=== PATIENT | female | born 1950 | race Caucasian/White ===

== ENCOUNTER 2017-03-10 16:17 | Outpatient (CLI) | payer MEDICARE ==
--- NOTE | 2017-03-11 19:41 | Mammography Report ---
DATE OF SERVICE: 03/10/2017 DIGITAL BILATERAL SCREENING MAMMOGRAM: 03/10/2017 CLINICAL INDICATION: A 67-year-old for screening. COMPARISON: 01/2013, 07/2010, 06/2008, 04/2007. TECHNIQUE: Routine CC and MLO projections were obtained of the breasts. The breasts demonstrate scattered fibroglandular densities bilaterally. Punctate, typically benign calcifications are present. intramammary lymph nodes are stable. No suspicious masses, clustered microcalcifications, or regions of architectural distortion are identified. IMPRESSION: Benign findings. RECOMMENDATIONS: Routine annual screening unless otherwise clinically indicated. BIRADS category 2 benign findings. STANDARD QUALIFYING STATEMENTS 1. This examination was reviewed with the aid of Computed-Aided Detection (CAD). 2. A negative or benign imaging report should not delay biopsy if clinically suspicious findings are present. Consider surgical consultation if warranted. More than 5% of cancers are not identified by imaging. 3. Dense breasts may obscure an underlying neoplasm. TD: 03/11/2017 20:40
== END 2017-03-10 16:18 | disposition home or self-care (01) ==
LOC: DI 16:17
PROVIDERS: ATTEND Internal Medicine
DX: Z12.31 Encounter for screening mammogram for malignant neoplasm of breast (principal)
CPT/HCPCS: 77067

== ENCOUNTER 2017-08-05 08:00 | Outpatient (CLI) | payer MEDICARE ==
[2017-08-05 19:12] LABS: BASOPHILS # (AUTO) 0.1 10^3/uL (0.0-0.1); BASOPHILS % (AUTO) 1.2 %; EOSINOPHILS # (AUTO) 0.1 10^3/uL (0.0-0.7); EOSINOPHILS % (AUTO) 1.1 %; HGB - HEMOGLOBIN 14.8 g/dL (12.0-16.0); LYMPHOCYTES # (AUTO) 3.6 10^3/uL (1.5-3.5); LYMPHOCYTES % (AUTO) 38.3 %; MEAN CORPUSCULAR HEMOGLOBIN 30.7 pg (27.0-31.0); MEAN CORPUSCULAR HGB CONC 32.9 g/dL (32.0-36.0); MEAN CORPUSCULAR VOLUME 93.3 fL (81.0-99.0); MEAN PLATELET VOLUME 10.2 fL (7.9-10.8); MONOCYTES # (AUTO) 0.8 10^3/uL (0.0-1.0); MONOCYTES % (AUTO) 8.5 %; NEUTROPHILS # (AUTO) 4.8 10^3/uL (1.5-6.6); NEUTROPHILS % (AUTO) 50.9 %; PLT - PLATELET COUNT 215 10^3/uL (130-450); RED BLOOD COUNT 4.83 10^6/uL (4.20-5.40); WHITE BLOOD COUNT 9.4 x10^3/uL (4.8-10.8)
== END 2017-08-05 08:01 ==
LOC: LAB.N 08:00
PROVIDERS: ATTEND Obstetrics & Gynecology
DX: N95.0 Postmenopausal bleeding (principal)
CPT/HCPCS: 36415; 85025

== ENCOUNTER 2017-08-18 18:55 | Outpatient (CLI) | END 2017-08-18 18:56 | disposition home or self-care (01) ==

== ENCOUNTER 2017-09-30 09:53 | Outpatient (CLI) | payer MEDICARE ==
[2017-09-30 10:50] LABS: BASOPHILS # (AUTO) 0.1 10^3/uL (0.0-0.1); BASOPHILS % (AUTO) 1.3 %; EOSINOPHILS # (AUTO) 0.1 10^3/uL (0.0-0.7); LYMPHOCYTES # (AUTO) 3.3 10^3/uL (1.5-3.5); LYMPHOCYTES % (AUTO) 37.8 %; MEAN CORPUSCULAR HEMOGLOBIN 30.4 pg (27.0-31.0); MEAN CORPUSCULAR HGB CONC 33.6 g/dL (32.0-36.0); MEAN CORPUSCULAR VOLUME 90.4 fL (81.0-99.0); MEAN PLATELET VOLUME 10.1 fL (7.9-10.8); MONOCYTES # (AUTO) 0.6 10^3/uL (0.0-1.0); MONOCYTES % (AUTO) 7.2 %; NEUTROPHILS # (AUTO) 4.6 10^3/uL (1.5-6.6); NEUTROPHILS % (AUTO) 52.7 %; PLT - PLATELET COUNT 187 10^3/uL (130-450); RED BLOOD COUNT 4.62 10^6/uL (4.20-5.40); RED CELL DISTRIBUTION WIDTH 12.6 % (12.0-15.0); WHITE BLOOD COUNT 8.8 x10^3/uL (4.8-10.8)
[2017-09-30 10:52] LABS: CALCIUM 9.2 mg/dL (8.5-10.3); CREATININE 0.5 mg/dL (0.4-1.0)
== END 2017-09-30 09:54 | disposition home or self-care (01) ==
LOC: LAB 09:53
PROVIDERS: ATTEND Obstetrics & Gynecology
DX: Z01.812 Encounter for preprocedural laboratory examination (principal); N84.0 Polyp of corpus uteri
CPT/HCPCS: 36415; 80048; 85025

== ENCOUNTER 2017-10-01 06:09 | Day surgery (SDC) | payer MEDICARE ==
--- NOTE | 2017-09-30 12:11 | PREOP HISTORY & PHYSICAL ---
DATE OF SERVICE: 10/01/2017 Physician: Pankaj Sunshine MD PREOP HISTORY AND PHYSICAL ON 09/30/2017 FOR ANTICIPATED PROCEDURE DATE OF 10/01 IDENTIFICATION: The patient is a 67-year-old G2, P1 female who reached menopause at roughly 48 years of age. She presents with postmenopausal bleeding. HISTORY OF PRESENT ILLNESS: Patient presented with postmenopausal bleeding. She has undergone an endometrial biopsy in the office, which is suspicious for that of an endometrial polyp. It was noted to be benign without evidence of any malignancy. She denies any history of any diabetes. She does have some hypertension. PAST MEDICAL HISTORY: Positive for hypertension, as well as restless leg syndrome. SURGICAL HISTORY: Right hip replacement, as well as tonsillectomy and adenoidectomy. ALLERGIES: NONE KNOWN. CURRENT MEDICATIONS 1. Estradiol. 2. Metoclopramide. 3. Lisinopril. HABITS: Patient drinks alcohol occasionally. Denies use of tobacco or THC on a daily basis. 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 FAMILY HISTORY: Positive for a mother who had heart disease, which includes congestive heart failure, CVA, HTN. She also had a hysterectomy at 75 years of age. PHYSICAL EXAMINATION GENERAL: Well-developed, well-nourished, white female in no acute distress at this time. VITAL SIGNS: Her blood pressure today was noted to be 110/80. HEENT: Pupils equal, round. Extraocular muscles intact. NECK: Thyroid not palpably enlarged. HEART: Regular rate and rhythm without murmurs. LUNGS: Lung reynolds are clear without rales or wheezes. PELVIC: On previous examination showed the uterus, which was not enlarged. Her endometrial biopsy specimen has been previously noted. IMPRESSION 1. A 67-year-old G2, P1 female who is menopausal. 2. Postmenopausal bleeding. 3. Biopsy suggestive of endometrial polyp. PLAN: We will perform hysteroscopy with dilatation and curettage and removal of polyp. Risks and benefits have been explained to the patient including those but not limited to bleeding, infection, injury to pelvic organs; which include the uterus, tubes, ovaries, bowel, bladder, and ureter. She is aware of potential DVT with PE, as well as postop adhesions, which can cause pain. TD: 09/30/2017 09:39 [facility]
[2017-10-01] MEDS ORDERED: ceFAZolin 1 GM VIAL ONE (06:30)
[2017-10-01] MEDS ORDERED: LACTATED RINGERS 1,000 ML IV ONE (06:36)
--- NOTE | 2017-10-01 06:52 | ANESTHESIA ---
Pre-Anesthesia VS, & Labs - Diagnosis Endometrial Polyp - Procedure Myosure hysteroscopy, D&C Vital Signs: 153/68 50 97% 16 Height 5 ft 7 in - NPO >8 hours - Is Patient ?: No, Not Applicable - Lab Results Lab results reviewed: Yes Home Medications and Allergies Home Medications: Ambulatory Orders Medication Instructions Recorded Confirmed Estradiol/Norethindrone Acet 0.5 tab PO DAILY 04/18/15 09/30/17 [Estradiol-Noreth 0.5-0.1 mg Tb] Lisinopril 20 mg PO QPM 04/18/15 09/30/17 Metoprolol Tartrate 25 mg PO BID 09/30/17 10/01/17 Allergies/Adverse Reactions: Allergies Allergy/AdvReac Type Severity Reaction Status Date / Time No Known Drug Allergies Allergy Verified 03/08/13 11:42 Anes History & Medical History - Anesthetic History Anesthesia Complications: reports: No previous complications - Airway/Dental Dental: WNL Mouth Opening: Greater than 4 Fingerbreadths Mallampati classification: II Thyromental Distance: greater than 6 cm - Medical History Cardiovascular: reports: Hypertension Pulmonary: reports: None Gastrointestinal: reports: None Urinary: reports: None Musculoskeletal: reports: Osteoarthritis Endocrine/Autoimmune: reports: None Skin: reports: None Smoking Status: Current every day smoker (THC, no longer tobbacco) Psychosocial: reports: Cannabis (daily) - Surgical History Eyes Ears Nose Throat (EENT): Cataracts, Tonsil/Adenoidectomy Gynecologic: Dilation and currettage Orthopedic: Hip replacement Exam General: Alert, Oriented x3 Respiratory: Lungs clear Cardiovascular: Regular rate Mental/Cognitive Status: Alert/Oriented X3, Normal for patient Cognitive Status: Within normal limits Plan Anesthesia Type: General Consent for Procedure(s) Verified and Reviewed: Yes Code Status: Attempt Resuscitation ASA classification: 1-Healthy patient Is this case an emergency?: No
[2017-10-01] MEDS ORDERED: ONDANSETRON 4 MG/2 ML VIAL IVP ONE (08:00)
[2017-10-01] MEDS ORDERED: PROPOFOL 200 MG/20 ML VIAL IVP ONE (08:00)
[2017-10-01] MEDS ORDERED: DEXAMETHASONE 4 MG/ML VIAL IVP ONE (08:00)
[2017-10-01] MEDS ORDERED: GLYCOPYRROLATE 1 MG/5 ML VIAL IVP ONE (08:00)
[2017-10-01] MEDS ORDERED: fentaNYL 100 MCG/2 ML VIAL IVP ONE (08:00)
[2017-10-01] MEDS ORDERED: MIDAZOLAM 2 MG/2 ML VIAL IVP ONE (08:00)
[2017-10-01] MEDS ORDERED: LIDOCAINE-MPF 2% 5 ML VIAL IM ONE (08:00)
[2017-10-01 09:27] VITALS: BP 145/67
--- NOTE | 2017-10-01 10:07 | OPERATIVE REPORT ---
DATE OF SERVICE: 10/01/2017 Physician: Pankaj Sunshine MD PREOPERATIVE DIAGNOSES 1. Postmenopausal bleeding. 2. Endometrial polyp. POSTOPERATIVE DIAGNOSES 1. Postmenopausal bleeding. 2. Endometrial polyp. PROCEDURE PERFORMED: Hysteroscopy with resection of endometrial polyp. SURGEON: Pankaj Sunshine MD. ANESTHESIA: Lindsay Rajan CRNA. ANESTHETIC: General via LMA. FINDINGS: Uterus sounded to 6 cm. There was a large endometrial polyp filling the endometrial cavit y. COMPLICATIONS: None. ESTIMATED BLOOD LOSS: Less than 5 mL. FLUIDS: In was 1369. Fluid out was 1200 mL Estimated fluid deficit 169 of normal saline. IV flui ds 500 mL. PROCEDURE: Following adequate general anesthesia, the patient was placed in dorsal lithotomy positio n. She was prepped and draped in the usual fashion. At this point, timeout was performed, and the i ssues and concerns were addressed. The cervix was visualized, grasped with a single-tooth tenaculum, sounded to 6 cm and then progressively dilated to 6 mm. A MyoSure hysteroscope was introduced, and there was a large endometrial polyp filling the endometrial cavity. The left cornual area was easily visualized. The right was not visible. At this point, the MyoSure was engaged and the endometrial polyp was easily resected all the way down to the endometrial base. The entire cavity was noted to be empty. Blood loss was minimal during th is entire procedure. The entire endometrial cavity was visualized and photographed. At this point, the MyoSure was removed. The patient tolerated the procedure well, and was taken to [facility] in stable condition. Sponge and needle counts were correct. TD: 10/01/2017 09:52
== END 2017-10-01 06:10 | disposition home or self-care (01) ==
LOC: SDS 06:09
PROVIDERS: ATTEND Obstetrics & Gynecology
PROC: 0UB98ZZ Excision of Uterus, Via Natural or Artificial Opening Endoscopic (ICD-10-PCS; principal; 2017-10-01 07:30)
DX: N84.0 Polyp of corpus uteri (principal); N95.0 Postmenopausal bleeding; I10 Essential (primary) hypertension; G25.81 Restless legs syndrome
CPT/HCPCS: 58558; J7120; 80048; 88305

== ENCOUNTER 2018-07-09 16:47 | Outpatient (CLI) | payer MEDICARE ==
--- NOTE | 2018-07-10 14:10 | Mammography Report ---
Reason: SCREENING MAMMO Procedure Date: 07/09/2018 Accession Number: [id number] / [id number] Procedure: ROBYN - Screening Mammo w/Hansel CPT Code: FULL RESULT: EXAM: Screening Mammo w/Hansel DATE: 07/09/2018 5:13 PM CLINICAL HISTORY: Routine screening. No reported personal or family history of breast cancer. TECHNIQUE: (B) - Bilateral CC and MLO views were obtained. COMPARISON: 03/10/2017 through 07/20/2008 PARENCHYMAL PATTERN: (F) - The breasts demonstrate diffuse fatty replacement bilaterally. FINDINGS: Bilateral breasts: There are no suspicious masses, calcifications, or areas of distortion. IMPRESSION: Negative examination. BI-RADS category 1. RECOMMENDATION: (ANNUAL) - Recommend routine annual screening mammography. BI-RADS CATEGORY: (1) - Negative. STANDARD QUALIFYING STATEMENTS: 1. This examination was not reviewed with the aid of Computer-Aided Detection (CAD). 2. A negative or benign imaging report should not preclude biopsy if clinically suspicious findings are present. 3. Dense breasts may obscure an underlying neoplasm. 4. This examination was reviewed with the aid of 3D breast imaging (tomosynthesis).
== END 2018-07-09 16:48 | disposition home or self-care (01) ==
LOC: DI 16:47
PROVIDERS: ATTEND Internal Medicine
DX: Z12.31 Encounter for screening mammogram for malignant neoplasm of breast (principal)
CPT/HCPCS: 77063; 77067

== ENCOUNTER 2018-09-28 13:50 | Outpatient (CLI) | payer MEDICARE ==
--- NOTE | 2018-09-29 14:30 | XRAY Report ---
Reason: PAIN EDEMA RT FOOT X6MO Procedure Date: 09/28/2018 Accession Number: [id number] / [id number] Procedure: XR - Foot 3 View RT CPT Code: FULL RESULT: EXAM: RIGHT FOOT RADIOGRAPHY EXAM DATE: 09/28/2018 02:04 PM. CLINICAL HISTORY: Pain. Edema right foot x 6 months. COMPARISON: None. TECHNIQUE: 3 views. FINDINGS: Bones: Mild inferior calcaneal spurring. No fractures or bone lesions. Joints: Degenerative changes are seen at the first metatarsophalangeal articulation. Soft Tissues: Normal. No soft tissue swelling. IMPRESSION: Degenerative changes as above. RADIA
== END 2018-09-28 13:51 | disposition home or self-care (01) ==
LOC: DI 13:50
PROVIDERS: ATTEND Podiatrist
DX: M19.071 Primary osteoarthritis, right ankle and foot (principal); M77.31 Calcaneal spur, right foot

== ENCOUNTER 2019-11-18 14:49 | Outpatient (CLI) | payer MEDICARE ==
--- NOTE | 2019-11-22 13:39 | Mammography Report ---
BILATERAL DIGITAL SCREENING MAMMOGRAM 3D/2D: 11/18/2019 CLINICAL: Routine screening. Comparison is made to exams dated: 07/09/2018 mammogram, 03/10/2017 mammogram, and 02/03/2013 mammogra m - [facility]. The tissue of both breasts is predominantly fatty. No significant masses, calcifications, or other findings are seen in either breast. There has been no significant interval change. IMPRESSION: NEGATIVE There is no mammographic evidence of malignancy. A 1 year screening mammogram is recommended. This exam was interpreted at Station ID: [id number]. NOTE: For mammograms, a report in lay terms will be sent to the patient. Approximately 15% of breast malignancies will not be visualized mammographically. In the management of a palpable breast mass, a negative mammogram must not discourage biopsy of a clinically suspicious lesion. Electronically Signed By: Jack Varela M.D. slc/penrad:11/19/2019 09:55:02 ACR BI-RADS Category 1: Negative 3341F PARENCHYMAL PATTERN: (F) - The breast(s) demonstrate(s) diffuse fatty replacement. BI-RADS CATEGORY: (1) - 1 RECOMMENDATION: (ANNUAL) - Recommend routine annual screening mammography. [id number] 1 year screening LATERALITY: (B)
== END 2019-11-18 14:50 | disposition home or self-care (01) ==
LOC: DI 14:49
PROVIDERS: ATTEND Internal Medicine
DX: Z12.31 Encounter for screening mammogram for malignant neoplasm of breast (principal)
CPT/HCPCS: 77063; 77067

== ENCOUNTER 2020-12-20 07:07 | Day surgery (SDC) | payer MEDICARE ==
[2020-12-20] MEDS ORDERED: LACTATED RINGERS 1,000 ML IV ONE ×2 (07:26→08:48)
--- NOTE | 2020-12-20 08:09 | ANESTHESIA ---
Pre-Anesthesia VS, & Labs - Diagnosis screening colonoscopy - Procedure colonoscopy Vital Signs: Temp Pulse Resp BP Pulse Ox 36.7 C 69 16 146/65 H 96 12/20/20 07:27 12/20/20 07:27 12/20/20 07:27 12/20/20 07:27 12/20/20 07:27 Height: 5 ft 7 in Weight (kg): 86.7 kg Body Mass Index: 29.9 BMI Classification: Overweight - NPO >8 hours - Is Patient ?: No Home Medications and Allergies Home Medications: Ambulatory Orders Carbidopa/Levodopa 25/100 [Sinemet 25 mg/100 mg] 1 each PO DAILY 12/20/20 Melatonin 10 mg PO DAILY PM 12/20/20 Estradiol/Norethindrone Acet [Estradiol-Noreth 0.5-0.1 mg Tb] 1 tab PO DAILY 04/18/15 lisinopriL [Lisinopril] 40 mg PO QPM 04/18/15 Metoprolol Tartrate 25 mg PO BID 09/30/17 Carbidopa/Levodopa 25/100 [Sinemet 25 mg/100 mg] 1 each PO DAILY 12/20/20 Melatonin 10 mg PO DAILY PM 12/20/20 Allergies/Adverse Reactions: Allergies Allergy/AdvReac Type Severity Reaction Status Date / Time No Known Drug Allergies Allergy Verified 12/20/20 07:43 Anes History & Medical History - Anesthetic History Anesthesia Complications: reports: No previous complications - Medical History Cardiovascular: reports: Hypertension Pulmonary: reports: None Gastrointestinal: reports: None Urinary: reports: None Musculoskeletal: Endocrine/Autoimmune: reports: None Skin: reports: None Smoking Status: Current every day smoker (THC, no longer tobbacco) History of Cancer?: No - Surgical History General: reports: Colonoscopy Eyes Ears Nose Throat (EENT): reports: Tonsil/Adenoidectomy Gynecologic: reports: Dilation and currettage Orthopedic: reports: Hip replacement Exam General: Alert Dental: WNL, Poor dentition Mouth Opening: Greater than 4 Fingerbreadths Neck Mobility: Normal Mallampati classification: II Thyromental Distance: greater than 6 cm Respiratory: Lungs clear Cardiovascular: Regular rate Plan Anesthesia Type: Total IV Consent for Procedure(s) Verified and Reviewed: Yes Code Status: Attempt Resuscitation ASA classification: 2-Mild systemic disease Is this case an emergency?: No
[2020-12-20] MEDS ORDERED: LIDOCAINE 1% ABBOJECT 50 MG/5 ML SYRINGE ONE (08:22)
[2020-12-20 09:04] VITALS: BP 136/57
--- NOTE | 2020-12-20 12:29 | ANESTHESIA POST OP EVALUATION ---
Anesthesia Post Eval - Post Anesthesia Eval Vitals: Last Vital Signs Temp 36.4 C L 12/20/20 08:47 Pulse 62 12/20/20 09:04 Resp 16 12/20/20 09:04 BP 136/57 H 12/20/20 09:04 Pulse Ox 100 12/20/20 09:04 CV Function Including HR & BP: Stable Pain Control: Satisfactory Nausea & Vomiting: Negative Mental Status: Baseline Respiratory Status: Airway Patent Hydration Status: Satisfactory Anesthesia Complications: None
== END 2020-12-20 07:08 | disposition home or self-care (01) ==
LOC: SDS 07:07
PROVIDERS: ATTEND Surgery
PROC: 0DBL8ZZ Excision of Transverse Colon, Via Natural or Artificial Opening Endoscopic (ICD-10-PCS; principal; 2020-12-20 08:15)
DX: Z12.11 Encounter for screening for malignant neoplasm of colon (principal); D12.3 Benign neoplasm of transverse colon; K64.8 Other hemorrhoids; K57.30 Diverticulosis of large intestine without perforation or abscess without bleeding; Z87.891 Personal history of nicotine dependence
CPT/HCPCS: 45385; J7120

== ENCOUNTER 2021-07-03 08:00 | Outpatient (CLI) | payer MEDICARE ==
[2021-07-03 16:28] LABS: BILIRUBIN,URINE NEGATIVE (NEGATIVE); GLUCOSE, URINE (UA) NEGATIVE (NEGATIVE); KETONES,URINE (UA) NEGATIVE (NEGATIVE); LEUKOCYTE ESTERASE, URINE TRACE (NEGATIVE); NITRITE,URINE POSITIVE (NEGATIVE); OCCULT BLOOD,URINE TRACE-INTA (NEGATIVE); PROTEIN,URINE NEGATIVE (NEGATIVE); UROBILINOGEN,URINE 0.2 (NORMAL) E.U./dL (NORMAL)
[2021-07-03 16:31] LABS: CLARITY,URINE HAZY (CLEAR)
== END 2021-07-03 23:59 | disposition home or self-care (01) ==
LOC: LAB.R 08:00
PROVIDERS: ATTEND Internal Medicine
DX: R39.9 Unspecified symptoms and signs involving the genitourinary system (principal)
CPT/HCPCS: 81003; 87086; 87181

== ENCOUNTER 2021-11-13 08:00 | Outpatient (CLI) | payer MEDICARE ==
--- NOTE | 2021-11-13 16:33 | XRAY Report ---
PROCEDURE: Hip 2 View LT INDICATIONS: LEFT HIP PAIN TECHNIQUE: AP view the pelvis and lateral view of the left hip. COMPARISON: Left hip radiographs 04/27/2018 FINDINGS: Bones: Mild patient motion is noted on AP view of the pelvis. Postsurgical changes are seen from rig ht total hip arthroplasty. Hardware components are in stable positions. Moderate to severe degenerati ve changes are seen at the left hip with joint space narrowing and marginal osteophyte formation. Deg enerative changes are seen in the included lumbar spine. No acute fractures or dislocations. No susp icious bony lesions. The visualized pelvic ring appears intact. Soft tissues: No suspicious soft tissue calcifications or masses. IMPRESSION: 1.Moderate to severe left hip osteoarthrosis has not significantly changed when compared to the radio graphs from 04/27/2018. 2.Stable right hip arthroplasty. Reviewed by: Nasir Nguyen MD on 11/13/2021 4:31 PM PDT Approved by: Nasir Nguyen MD on 11/13/2021 4:31 PM PDT Station ID: [id number]
== END 2021-11-13 23:59 | disposition home or self-care (01) ==
LOC: DI.WOS 08:00
PROVIDERS: ATTEND Orthopaedic Surgery
DX: M16.12 Unilateral primary osteoarthritis, left hip (principal); Z96.641 Presence of right artificial hip joint

== ENCOUNTER 2021-12-19 10:34 | Outpatient (CLI) | payer MEDICARE ==
[2021-12-19 10:49] LABS: BASOPHILS # (AUTO) 0.1 10^3/uL (0.0-0.1); BASOPHILS % (AUTO) 1.2 %; EOSINOPHILS # (AUTO) 0.2 10^3/uL (0.0-0.7); EOSINOPHILS % (AUTO) 1.8 %; HCT - HEMATOCRIT 43.5 % (37.0-47.0); HGB - HEMOGLOBIN 14.3 g/dL (12.0-16.0); LYMPHOCYTES # (AUTO) 3.4 10^3/uL (1.5-3.5); LYMPHOCYTES % (AUTO) 41.7 %; MEAN CORPUSCULAR HEMOGLOBIN 29.9 pg (27.0-31.0); MEAN CORPUSCULAR HGB CONC 32.9 g/dL (32.0-36.0); MEAN CORPUSCULAR VOLUME 90.8 fL (81.0-99.0); MEAN PLATELET VOLUME 11.1 fL (7.9-10.8); MONOCYTES # (AUTO) 0.6 10^3/uL (0.0-1.0); MONOCYTES % (AUTO) 6.8 %; NEUTROPHILS # (AUTO) 3.9 10^3/uL (1.5-6.6); NEUTROPHILS % (AUTO) 48.4 %; PLT - PLATELET COUNT 189 10^3/uL (130-450); RED BLOOD COUNT 4.79 10^6/uL (4.20-5.40); RED CELL DISTRIBUTION WIDTH 12.7 % (12.0-15.0); WHITE BLOOD COUNT 8.1 x10^3/uL (4.8-10.8)
[2021-12-19 11:07] LABS: ALBUMIN 4.4 g/dL (3.2-5.5); ALBUMIN/GLOBULIN RATIO 1.4 (1.0-2.2); ALKALINE PHOSPHATASE 66 IU/L (42-121); ALT ALANINE AMINOTRANSFERASE 11 IU/L (10-60); AST ASPARTATE AMINOTRANSFERASE 17 IU/L (10-42); BILIRUBIN,TOTAL 0.6 mg/dL (0.2-1.0); BUN - BLOOD UREA NITROGEN 16 mg/dL (6-20); CALCIUM 10.1 mg/dL (8.5-10.3); CARBON DIOXIDE - CO2 29 mmol/L (21-32); CHLORIDE 102 mmol/L (101-111); CHOL/HDL RATIO 4.5 (<4.4); CHOLESTEROL 176 mg/dL; CREATININE 0.7 mg/dL (0.4-1.0); GFR - MDRD 82 (>89); GLUCOSE 99 mg/dL (70-100); HDL CHOLESTEROL 39 mg/dL; LDL CHOLESTEROL,CALCULATED 96 mg/dL; LDL/HDL RATIO 2.5 (<4.4); POTASSIUM 4.4 mmol/L (3.5-5.0); SODIUM 141 mmol/L (135-145); TOTAL PROTEIN 7.6 g/dL (6.7-8.2); TRIGLYCERIDES 203 mg/dL; VLDL CHOLESTEROL 41 mg/dL
== END 2021-12-19 10:35 | disposition home or self-care (01) ==
LOC: LAB 10:34
PROVIDERS: ATTEND Internal Medicine
DX: Z00.00 Encounter for general adult medical examination without abnormal findings (principal); I10 Essential (primary) hypertension; R39.14 Feeling of incomplete bladder emptying; M25.551 Pain in right hip; N95.1 Menopausal and female climacteric states; D25.9 Leiomyoma of uterus, unspecified; Z86.010 Personal history of colon polyps
CPT/HCPCS: 36415; 80053; 80061; 83721; 84443; 85025

== ENCOUNTER 2021-12-27 13:38 | Outpatient (CLI) | payer MEDICARE ==
--- NOTE | 2021-12-27 15:34 | XRAY Report ---
PROCEDURE: Hip w/Pelvis 2-3V RT INDICATIONS: RIGHT HIP PAIN TECHNIQUE: AP pelvis with lateral view(s) of the right hip(s). COMPARISON: None. FINDINGS: Bones: No fractures or dislocations. Pelvic ring appears intact. No suspicious bony lesions. Righ t hip arthroplasty is present. Hardware is intact without evidence of hardware fracture or periprosth etic lucency to suggest loosening. [id number] left hip arthritic changes are present. Soft tissues: The visualized bowel gas pattern is normal. No suspicious soft tissue calcifications. IMPRESSION: Stable right hip arthroplasty. Left hip arthritic changes. Reviewed by: Mandie Cabello MD on 12/27/2021 3:33 PM PDT Approved by: Mandie Cabello MD on 12/27/2021 3:33 PM PDT Station ID: [id number]
== END 2021-12-27 13:39 | disposition home or self-care (01) ==
LOC: DI 13:38
PROVIDERS: ATTEND Internal Medicine
DX: M25.551 Pain in right hip (principal); Z96.641 Presence of right artificial hip joint

== ENCOUNTER 2022-06-28 12:11 | Outpatient (CLI) | payer MEDICARE ==
--- NOTE | 2022-07-01 09:16 | Mammography Report ---
BILATERAL DIGITAL SCREENING MAMMOGRAM 3D/2D: 06/28/2022 CLINICAL: Routine screening. Comparison is made to exams dated: 11/18/2019 mammogram, 07/09/2018 mammogram, 03/10/2017 mammogram, an d 02/03/2013 mammogram - [facility]. Both breasts are almost entirely fatty (category a/<25% glandular tissue). No significant masses, calcifications, or other findings are seen in either breast. There has been no significant interval change. IMPRESSION: NEGATIVE There is no mammographic evidence of malignancy. A 1 year screening mammogram is recommended. Based on the Tyrer Cuzick model (a risk assessment model) the patients lifetime risk is 1.8% and her 10 year risk is 1.6%. According to the ACR, ACS, and NCCN guidelines, an annual breast MRI exam daniel g with mammogram is recommended if the patients lifetime risk is 20% or greater. This exam was interpreted at Station ID: [id number]. NOTE: For mammograms, a report in lay terms will be sent to the patient. Approximately 15% of breast malignancies will not be visualized mammographically. In the management of a palpable breast mass, a negative mammogram must not discourage biopsy of a clinically suspicious lesion. Electronically Signed By: Trey blancas/isiah:06/28/2022 13:37:08 letter sent: No_Letter ACR BI-RADS Category 1: Negative 3341F PARENCHYMAL PATTERN: (F) - The breast(s) demonstrate(s) diffuse fatty replacement. BI-RADS CATEGORY: (1) - 1 Mammogram [id number] 1 year screening LATERALITY: (B)
== END 2022-06-28 12:12 | disposition home or self-care (01) ==
LOC: DI 12:11
PROVIDERS: ATTEND Internal Medicine
DX: Z12.31 Encounter for screening mammogram for malignant neoplasm of breast (principal)

== ENCOUNTER 2022-07-09 07:00 | Outpatient (CLI) | payer MEDICARE ==
--- NOTE | 2022-07-09 16:41 | XRAY Report ---
PROCEDURE: Chest 2 View X-Ray INDICATIONS: VIRAL BRONCHITIS TECHNIQUE: 2 views of the chest were acquired. COMPARISON: None. FINDINGS: Surgical changes and devices: None. Lungs and pleura: No pleural effusions or pneumothorax. Lungs are clear. Mediastinum: Mediastinal contours appear normal. Heart size is normal. Bones and chest wall: No suspicious bony lesions. Overlying soft tissues appear unremarkable. IMPRESSION: No acute cardiopulmonary disease process. Reviewed by: Luz Maria Christian MD, PhD on 07/09/2022 4:40 PM PDT Approved by: Luz Maria Christian MD, PhD on 07/09/2022 4:40 PM PDT Station ID: [id number]
== END 2022-07-09 23:59 | disposition home or self-care (01) ==
LOC: DI.S 07:00
PROVIDERS: ATTEND Emergency Medicine
DX: J20.8 Acute bronchitis due to other specified organisms (principal)

== ENCOUNTER 2023-04-23 08:11 | Outpatient (CLI) | payer MEDICARE ==
[2023-04-23 08:29] LABS: BASOPHILS # (AUTO) 0.1 10^3/uL (0.0-0.1); BASOPHILS % (AUTO) 0.7 %; EOSINOPHILS # (AUTO) 0.1 10^3/uL (0.0-0.7); EOSINOPHILS % (AUTO) 1.5 %; HCT - HEMATOCRIT 43.2 % (37.0-47.0); LYMPHOCYTES # (AUTO) 2.8 10^3/uL (1.5-3.5); LYMPHOCYTES % (AUTO) 40.8 %; MEAN CORPUSCULAR HEMOGLOBIN 29.8 pg (27.0-31.0); MEAN CORPUSCULAR HGB CONC 32.4 g/dL (32.0-36.0); MEAN CORPUSCULAR VOLUME 91.9 fL (81.0-99.0); MEAN PLATELET VOLUME 11.7 fL (7.9-10.8); MONOCYTES # (AUTO) 0.5 10^3/uL (0.0-1.0); MONOCYTES % (AUTO) 6.9 %; NEUTROPHILS # (AUTO) 3.4 10^3/uL (1.5-6.6); PLT - PLATELET COUNT 175 10^3/uL (130-450); RED CELL DISTRIBUTION WIDTH 12.6 % (12.0-15.0); WHITE BLOOD COUNT 6.9 x10^3/uL (4.8-10.8)
[2023-04-23 08:57] LABS: ALBUMIN 4.5 g/dL (3.2-5.5); ALBUMIN/GLOBULIN RATIO 1.6 (1.0-2.2); ALKALINE PHOSPHATASE 65 IU/L (42-121); ALT ALANINE AMINOTRANSFERASE 7 IU/L (10-60); AST ASPARTATE AMINOTRANSFERASE 17 IU/L (10-42); BILIRUBIN,TOTAL 0.4 mg/dL (0.2-1.0); BUN - BLOOD UREA NITROGEN 19 mg/dL (6-20); CALCIUM 10.2 mg/dL (8.5-10.3); CARBON DIOXIDE - CO2 31 mmol/L (21-32); CHLORIDE 104 mmol/L (101-111); CHOL/HDL RATIO 4.2 (<4.4); CHOLESTEROL 165 mg/dL; CREATININE 0.7 mg/dL (0.6-1.3); GFR - MDRD 82 (>89); GLUCOSE 95 mg/dL (74-104); HDL CHOLESTEROL 39 mg/dL; LDL CHOLESTEROL,CALCULATED 82 mg/dL; LDL/HDL RATIO 2.1 (<4.4); POTASSIUM 4.4 mmol/L (3.5-4.5); SODIUM 139 mmol/L (135-145); TOTAL PROTEIN 7.3 g/dL (6.4-8.9); TRIGLYCERIDES 220 mg/dL (48-352); VLDL CHOLESTEROL 44 mg/dL
[2023-04-23 09:12] LABS: THYROID STIMULATING HORMONE 1.49 uIU/mL (0.34-5.60)
[2023-04-23 10:30] LABS: ESTIMATED AVERAGE GLUCOSE 117 mg/dL (70-100); HEMOGLOBIN A1c% 5.7 % (4.27-6.07)
== END 2023-04-23 08:12 | disposition home or self-care (01) ==
LOC: LAB 08:11
PROVIDERS: ATTEND Internal Medicine
DX: I10 Essential (primary) hypertension (principal); Z79.899 Other long term (current) drug therapy; Z13.6 Encounter for screening for cardiovascular disorders; R63.8 Other symptoms and signs concerning food and fluid intake; R61 Generalized hyperhidrosis
CPT/HCPCS: 36415; 80053; 80061; 82607; 83036; 83721; 84443; 85025

== ENCOUNTER 2023-06-23 09:00 | Emergency (ER) | payer MEDICARE ==
[2023-06-23 09:22] VITALS: BP 168/46
--- NOTE | 2023-06-23 09:47 | ED Physician Documentation ---
PD HPI LOWER EXT INJURY - Stated complaint Stated Complaint: LT LEG PX - Chief complaint Chief Complaint: Trauma Ext - Additional information Additional information: Generally healthy 73-year-old lady slipped on , 4 days ago, walking to convenience store landed on her left knee. Complaining of pain in the left patella. She is ambulatory with moderate discomfort with a cane. No other injuries at the time. PD PAST MEDICAL HISTORY - Past Medical History Cardiovascular: Hypertension Respiratory: None Neuro: Peripheral neuropathy Endocrine/Autoimmune: None GI: None RADIO TALK SHOW HOST: None : None HEENT: Chronic hearing loss Psych: None Musculoskeletal: None Derm: None - Past Surgical History Past Surgical History: Yes General: Colonoscopy Ortho: Hip replacement /RADIO TALK SHOW HOST: Dilation and currettage HEENT: Cataracts, Tonsil/Adenoidectomy - Present Medications Home Medications: Ambulatory Orders Medication Instructions Recorded Confirmed lisinopriL [Lisinopril] 40 mg PO QPM 04/18/15 06/23/23 Metoprolol Tartrate 25 mg PO BID 09/30/17 06/23/23 HYDROcod/ACETAM 5/325 [[place] 5/325] 1 - 2 tab PO Q6H PRN #15 tablet 06/23/23 Multivitamin/Iron/Folic Acid 1 each PO DAILY 06/23/23 06/23/23 [Centrum Women Tablet] traZODone [Desyrel] 50 mg PO HS PRN 06/23/23 06/23/23 - Allergies Allergies/Adverse Reactions: Allergies Allergy/AdvReac Type Severity Reaction Status Date / Time No Known Drug Allergies Allergy Verified 06/23/23 09:09 - Social History Does the pt smoke?: No Smoking Status: Never smoker Does the pt drink ETOH?: Yes Does the pt have substance abuse?: Yes Substance Use and Type: Marijuana - Immunizations Immunizations are current?: Yes PD ED PE NORMAL - General General: Alert and oriented X 3 - HEENT HEENT: Atraumatic - Extremities Extremities: Other (Tender to palpation on left patella. There is mild swelling of the left knee. The joint is not grossly unstable. Her ankle and hip are fine on the same side. Skin is intact) Results - Vitals Vitals: Vital Signs - 24 hr 06/23/23 09:11 Temperature 36.7 C Heart Rate 51 L Respiratory 16 Rate Blood Pressure 168/46 H O2 Saturation 100 Oxygen O2 Source [With Activity] Room air O2 Source Room air - Rads (name of study) left knee Relevant Findings:: Final report received (Nondisplaced comminuted patellar fracture.), EMP independent interpretation of test (patella fx) PD Medical Decision Making - ED course Complexity details: reviewed results, re-evaluated patient, considered differential (Internal derangement knee, patella fracture. No sign she is patella tendon injury), d/w patient ED course: x-ray confirms clinical suspicion of patella fracture. Will treat with knee immobilizer and refer to orthopedics she was given knee immobilizer and crutches here patient will prescription for [place]. She has a relationship with an orthopedist from her hip replacements. She will call to be seen this week. Departure - Departure Disposition: 01 Home, Self Care Clinical Impression: Patella fracture Condition: Good Instructions: ED Fx Patella Prescriptions: HYDROcod/ACETAM 5/325 [[place] 5/325] 1 - 2 tab PO Q6H PRN #15 tablet PRN Reason: Pain Comments: Use the knee immobilizer and crutches that we gave you. Elevate the extremity. Ice to the area. Can take [place] as needed for pain. Call your orthopedic surgeon that you have a relationship with from your hip to be seen within the week. Return to ER any concerns Forms: PCP List
--- NOTE | 2023-06-23 10:00 | XRAY Report ---
PROCEDURE: Knee 4+V LT INDICATIONS: Trauma TECHNIQUE: 5 views of the knee(s) were acquired. COMPARISON: None. FINDINGS: Bones: Comminuted patellar nondisplaced fracture. No distraction. No dislocations. No suspicious cathie ny lesions. Soft tissues: Small knee joint effusion. No suspicious soft tissue calcifications or masses. Arteria l vascular calcifications. IMPRESSION: Nondisplaced comminuted patellar fracture. Reviewed by: Jack Varela MD on 06/23/2023 9:58 AM PDT Approved by: Jack Varela MD on 06/23/2023 9:58 AM PDT Station ID: [id number]
[2023-06-23 11:30] VITALS: O2SAT 99
== END 2023-06-23 11:23 | disposition home or self-care (01) ==
LOC: ED 09:00
DX: S82.045A Nondisplaced comminuted fracture of left patella, initial encounter for closed fracture (principal); W01.0XXA Fall on same level from slipping, tripping and stumbling without subsequent striking against object, initial encounter; Y93.01 Activity, walking, marching and hiking
CPT/HCPCS: 99283; 99284

== ENCOUNTER 2023-07-07 14:23 | Outpatient (CLI) | payer MEDICARE ==
--- NOTE | 2023-07-07 17:14 | XRAY Report ---
Knee 4+V LT HISTORY: 73 years of age, LEFT PATELLA FRACTURE TECHNIQUE: Knee 4+V LT COMPARISON: 06/23/2023. FINDINGS/IMPRESSION: Mildly comminuted nondisplaced fracture of the left patella, unchanged from prior exam. No definitive interval healing. Joint space of the left knee is well-maintained. No left knee effusion. Small dist al quadricep enthesophyte. Frontal view of the right knee is unremarkable. Reviewed by: Padmini Lara MD on 07/07/2023 5:12 PM PDT Approved by: Padmini Lara MD on 07/07/2023 5:12 PM PDT Station ID: [id number]
== END 2023-07-07 14:24 | disposition home or self-care (01) ==
LOC: DI 14:23
PROVIDERS: ATTEND Orthopaedic Surgery
DX: S82.045A Nondisplaced comminuted fracture of left patella, initial encounter for closed fracture (principal)

== ENCOUNTER 2023-07-23 15:05 | Outpatient (CLI) | payer MEDICARE ==
--- NOTE | 2023-07-23 16:18 | XRAY Report ---
PROCEDURE: Knee 4+V LT INDICATIONS: LEFT PATELLA FRACTURE TECHNIQUE: 4 views of the knee(s) were acquired. COMPARISON: 07/07/2023 FINDINGS: Bones: Similar alignment and appearance of comminuted left patellar fracture with mild displacement. . No suspicious bony lesions. Soft tissues: Small knee joint effusion. No suspicious soft tissue calcifications or masses. IMPRESSION: Similar appearance and alignment of left patellar fracture. Reviewed by: Pancho Hastings MD on 07/23/2023 4:17 PM PDT Approved by: Pancho Hastings MD on 07/23/2023 4:17 PM PDT Station ID: [id number]
== END 2023-07-23 15:06 | disposition home or self-care (01) ==
LOC: DI 15:05
PROVIDERS: ATTEND Orthopaedic Surgery
DX: S82.042D Displaced comminuted fracture of left patella, subsequent encounter for closed fracture with routine healing (principal)

== ENCOUNTER 2023-08-19 08:55 | Outpatient (CLI) | payer MEDICARE ==
--- NOTE | 2023-08-19 12:57 | XRAY Report ---
PROCEDURE: Knee 4+V LT INDICATIONS: LEFT PATELLA FRACTURE TECHNIQUE: 4 views of the knee(s) were acquired. COMPARISON: Left knee radiographs 07/23/2023, 06/23/2023. FINDINGS: Bones: Patellar fracture is less conspicuous. No dislocations. No suspicious bony lesions. Soft tissues: Small knee joint effusion. No suspicious soft tissue calcifications or masses. IMPRESSION: Ongoing healing of the patellar fracture. Reviewed by: Jack Varela MD on 08/19/2023 12:55 PM PDT Approved by: Jack Varela MD on 08/19/2023 12:55 PM PDT Station ID: [id number]
== END 2023-08-19 08:56 | disposition home or self-care (01) ==
LOC: DI 08:55
PROVIDERS: ATTEND Orthopaedic Surgery
DX: S82.045D Nondisplaced comminuted fracture of left patella, subsequent encounter for closed fracture with routine healing (principal)

== ENCOUNTER 2023-10-17 09:12 | Outpatient (CLI) | payer MEDICARE ==
--- NOTE | 2023-10-20 08:51 | Mammography Report ---
BILATERAL DIGITAL SCREENING MAMMOGRAM 3D/2D: 10/17/2023 CLINICAL: Routine screening. Comparison is made to exams dated: 06/28/2022 mammogram, 11/18/2019 mammogram, 07/09/2018 mammogram, and 03/10/2017 mammogram - [facility]. Both breasts are almost entirely fatty (category a/<25% glandular tissue). No significant masses, calcifications, or other findings are seen in either breast. There has been no significant interval change. IMPRESSION: NEGATIVE There is no mammographic evidence of malignancy. A 1 year screening mammogram is recommended. Based on the Tyrer Cuzick model (a risk assessment model) the patient's lifetime risk is 1.7% and her 10 year risk is 1.7%. According to the ACR, ACS, and NCCN guidelines, an annual breast MRI exam daniel g with mammogram is recommended if the patient's lifetime risk is 20% or greater. This exam was interpreted at Station ID: [id number]. NOTE: For mammograms, a report in lay terms will be sent to the patient. Approximately 15% of breast malignancies will not be visualized mammographically. In the management of a palpable breast mass, a negative mammogram must not discourage biopsy of a clinically suspicious lesion. Electronically Signed By: Huy zhou/isiah:10/17/2023 09:55:55 letter sent: No_Letter ACR BI-RADS Category 1: Negative 3341F PARENCHYMAL PATTERN: (F) - The breast(s) demonstrate(s) diffuse fatty replacement. BI-RADS CATEGORY: (1) - 1 RECOMMENDATION: (ANNUAL) - Recommend routine annual screening mammography. [id number] 1 year screening LATERALITY: (B)
== END 2023-10-17 09:13 | disposition home or self-care (01) ==
LOC: DI 09:12
PROVIDERS: ATTEND Internal Medicine
DX: Z12.31 Encounter for screening mammogram for malignant neoplasm of breast (principal)